=== PATIENT | male | born 1945 | race Caucasian/White ===

== ENCOUNTER 2019-05-29 18:11 | Outpatient (REF) | payer MEDICARE, MEDICAID, SELFPAY ==
[2019-05-29 19:59] LABS: HCT 39.4 % (40.0-50.0); HGB 12.8 g/dL (13.5-17.5); Mean Corp. HGB Concentration 32.5 g/dL (32.0-36.0); Mean Corpuscular Hemoglobin 30.6 pg (27.0-33.0); Mean Corpuscular Volume 94.3 fL (80-95); Mean Platelet Volume 10.4 fL (8.0-11.0); Platelet Count 196 x1000/uL (130-400); RBC 4.18 m/cumm (4.50-6.00); RBC Distribution Width 14.2 % (11.8-14.1); White Blood Cell Count 7.89 k/cumm (4.4-10.8)
[2019-05-29 20:29] LABS: ALT 32 U/L (16-63); AST 23 U/L (15-37); Albumin 3.3 g/dL (3.4-5.0); Alkaline Phosphatase 76 U/L (46-116); Anion Gap 13.3 mmol/L (3-11); BUN 28 mg/dL (7-18); Bilirubin, Total 0.7 mg/dL (0.2-1.0); CO2 24.7 mmol/L (21.0-32.0); CREATININE 1.26 mg/dL (0.70-1.30); Calcium 8.8 mg/dL (8.5-10.1); Chloride 100 mmol/L (98-107); Estimated GFR 55.94 (mL/min/1.73m2); Glucose 93 mg/dL (70-100); Lipase 420 U/L (73-393); Potassium 4.2 mmol/L (3.5-5.1); Sodium 138 mmol/L (136-145); TSH 1.45 uIU/mL (0.36-3.74); Total Protein 6.9 g/dL (6.4-8.2)
== END 2019-05-29 18:31 ==
LOC: NCHCN 18:11
PROVIDERS: PCP Internal Medicine; Visit Provider Internal Medicine
DX: R53.1 Weakness (principal); E86.0 Dehydration
CPT/HCPCS: 80053; 83690; 85027; 84443

== ENCOUNTER 2019-12-18 08:44 | Outpatient (REF) | payer MEDICARE, MEDICAID, SELFPAY ==
[2019-12-19 10:38] LABS: HCT 40.6 % (40.0-50.0); HGB 13.2 g/dL (13.5-17.5); Mean Corp. HGB Concentration 32.5 g/dL (32.0-36.0); Mean Corpuscular Volume 95.3 fL (80-95); Mean Platelet Volume 10.6 fL (8.0-11.0); Platelet Count 212 x1000/uL (130-400); RBC 4.26 m/cumm (4.50-6.00); RBC Distribution Width 14.7 % (11.8-14.1); White Blood Cell Count 6.89 k/cumm (4.4-10.8)
[2019-12-19 10:57] LABS: ALT 18 U/L (16-63); AST 15 U/L (15-37); Albumin 3.5 g/dL (3.4-5.0); Alkaline Phosphatase 105 U/L (46-116); Anion Gap 7.9 mmol/L (3-11); BUN 13 mg/dL (7-18); Bilirubin, Total 0.5 mg/dL (0.2-1.0); CO2 28.1 mmol/L (21.0-32.0); Calcium 9.1 mg/dL (8.5-10.1); Chloride 105 mmol/L (98-107); Glucose 101 mg/dL (74-106); Potassium 4.3 mmol/L (3.5-5.1); Sodium 141 mmol/L (136-145); TSH 0.82 uIU/mL (0.36-3.74)
== END 2019-12-18 09:04 ==
LOC: NCHCN 08:44
PROVIDERS: PCP Internal Medicine; Visit Provider Internal Medicine
DX: I10 Essential (primary) hypertension (principal); I48.0 Paroxysmal atrial fibrillation
CPT/HCPCS: 80053; 85027; 84443

== ENCOUNTER 2020-02-17 14:32 | Outpatient (REF) | payer MEDICARE, MEDICAID, SELFPAY ==
[2020-02-17 19:15] LABS: HGB 12.6 g/dL (13.5-17.5); Mean Corp. HGB Concentration 31.5 g/dL (32.0-36.0); Mean Corpuscular Hemoglobin 29.5 pg (27.0-33.0); Mean Corpuscular Volume 93.7 fL (80-95); Mean Platelet Volume 9.8 fL (8.0-11.0); Platelet Count 266 x1000/uL (130-400); RBC 4.27 m/cumm (4.50-6.00); RBC Distribution Width 15.1 % (11.8-14.1); White Blood Cell Count 7.59 k/cumm (4.4-10.8)
[2020-02-17 19:19] LABS: ALT 18 U/L (16-63); AST 17 U/L (15-37); Albumin 3.6 g/dL (3.4-5.0); Alkaline Phosphatase 116 U/L (46-116); Anion Gap 10.5 mmol/L (3-11); BUN 17 mg/dL (7-18); Bilirubin, Total 0.4 mg/dL (0.2-1.0); CO2 25.5 mmol/L (21.0-32.0); CREATININE 0.91 mg/dL (0.70-1.30); Calcium 8.9 mg/dL (8.5-10.1); Chloride 104 mmol/L (98-107); Glucose 111 mg/dL (74-106); Sodium 140 mmol/L (136-145); Total Protein 7.2 g/dL (6.4-8.2)
[2020-02-17 20:04] LABS: INR 1.3 (0.9-1.1); Prothrombin Time 12.7 sec (9.3-11.0)
== END 2020-02-17 14:52 ==
LOC: NCHCN 14:32
PROVIDERS: PCP Internal Medicine; Visit Provider Internal Medicine
DX: C34.92 Malignant neoplasm of unspecified part of left bronchus or lung (principal); I48.0 Paroxysmal atrial fibrillation; Z79.01 Long term (current) use of anticoagulants
CPT/HCPCS: 80053; 85027; 85610

== ENCOUNTER 2020-05-25 01:40 | Outpatient (RCR) | payer MEDICARE, MEDICAID, SELFPAY ==
[2020-05-25 11:58] LABS: Abs Immature Grans 0.04 10^3/uL (0.0-0.06); Absolute Basophil Count 0.03 10^3/uL (0.0-0.2); Absolute Eosinophil Count 0.05 10^3/uL (0.0-0.7); Absolute Lymphocyte Count 1.14 10^3/uL (1.2-3.4); Absolute Monocyte Count 0.65 10^3/uL (0.1-0.8); Absolute Neutrophil Count 7.59 10^3/uL (1.2-6.7); Basophils % 0.3; Eosinophils % 0.5; HCT 33.1 % (40.0-50.0); HGB 10.4 g/dL (13.5-17.5); Immature Grans % 0.4; MCH 27.7 pg (27.0-33.0); MCHC 31.4 % (32.0-36.0); MCV 88.3 fL (80-95); MPV 8.7 fL (8.0-11.0); Monocytes % 6.8; Nucleated RBC 0 %; Platelet Count 340 10^3/uL (130-400); RBC 3.75 10^6/uL (4.36-5.78); RDW 15.1 % (11.8-14.1); RDW-SD 49.1 fL
[2020-05-25 12:32] LABS: ALT 13 U/L (16-63); AST 15 U/L (15-37); Albumin 2.5 g/dL (3.4-5.0); Alkaline Phosphatase 108 U/L (46-116); Anion Gap 8.2 mmol/L (3-11); BUN 13 mg/dL (7-18); Bilirubin, Total 0.4 mg/dL (0.2-1.0); CO2 26.8 mmol/L (21.0-32.0); CREATININE 0.92 mg/dL (0.70-1.30); Calcium 8.7 mg/dL (8.5-10.1); Chloride 98 mmol/L (98-107); Glucose 140 mg/dL (74-106); Potassium 4.1 mmol/L (3.5-5.1); Sodium 133 mmol/L (136-145); TSH 0.71 uIU/mL (0.36-3.74); Total Protein 7.1 g/dL (6.4-8.2)
== END 2020-06-10 23:59 | disposition home or self-care (01) ==
LOC: INF 01:40
PROVIDERS: PCP Internal Medicine; Visit Provider Internal Medicine Hematology & Oncology
DX: E03.2 Hypothyroidism due to medicaments and other exogenous substances (principal)
CPT/HCPCS: 36415; 80053; 84443; 85025

== ENCOUNTER 2020-05-25 16:04 | Outpatient (REF) | payer MEDICARE, MEDICAID, SELFPAY ==
[2020-05-25 16:23] LABS: Bilirubin Small (Negative); Blood Negative (Negative); Clarity Clear (Clear); Glucose Negative (Negative); Ketones Negative (Negative); Leukocyte Esterase Negative (Negative); Nitrite Negative (Negative); Specific Gravity >= 1.030 (1.005-1.025); pH 5.5 (5-8)
[2020-05-25 16:36] LABS: RBC 0-2 HPF (0-2); WBC 0-2 HPF (0-5)
[2020-05-25 16:37] LABS: Bacteria Negative HPF (Negative); C & S Indicated? No; Casts Negative LPF (Negative); Crystals Few Calcium Oxalate HPF (Negative); Epithelial Cells Few HPF (Negative); Mucus Trace (Negative)
== END 2020-05-25 16:24 ==
LOC: LBN 16:04
PROVIDERS: PCP Internal Medicine; Visit Provider Internal Medicine Medical Oncology
DX: E88.09 Other disorders of plasma-protein metabolism, not elsewhere classified (principal)
CPT/HCPCS: 81003; 81015

== ENCOUNTER 2020-07-06 01:09 | Outpatient (RCR) | payer MEDICARE, MEDICAID, SELFPAY ==
[2020-06-15 12:29] LABS: Abs Immature Grans 0.03 10^3/uL (0.0-0.06); Absolute Basophil Count 0.03 10^3/uL (0.0-0.2); Absolute Eosinophil Count 0.01 10^3/uL (0.0-0.7); Absolute Lymphocyte Count 0.82 10^3/uL (1.2-3.4); Absolute Monocyte Count 0.63 10^3/uL (0.1-0.8); Absolute Neutrophil Count 7.87 10^3/uL (1.2-6.7); Basophils % 0.3; Eosinophils % 0.1; HCT 32.5 % (40.0-50.0); HGB 10.1 g/dL (13.5-17.5); Immature Grans % 0.3; Lymphocytes % 8.7; MCH 26.5 pg (27.0-33.0); MCHC 31.1 % (32.0-36.0); MCV 85.3 fL (80-95); MPV 8.8 fL (8.0-11.0); Monocytes % 6.7; Neutrophils % 83.9; Nucleated RBC 0 %; Platelet Count 345 10^3/uL (130-400); RBC 3.81 10^6/uL (4.36-5.78); RDW 15.5 % (11.8-14.1); RDW-SD 48.6 fL; WBC 9.39 10^3/uL (4.4-10.8)
[2020-06-15 12:52] LABS: ALT 13 U/L (16-63); AST 15 U/L (15-37); Albumin 2.3 g/dL (3.4-5.0); Alkaline Phosphatase 95 U/L (46-116); Anion Gap 8.1 mmol/L (3-11); BUN 11 mg/dL (7-18); Bilirubin, Total 0.4 mg/dL (0.2-1.0); CO2 27.9 mmol/L (21.0-32.0); CREATININE 0.74 mg/dL (0.70-1.30); Calcium 8.6 mg/dL (8.5-10.1); Chloride 98 mmol/L (98-107); Glucose 137 mg/dL (74-106); Potassium 4.1 mmol/L (3.5-5.1); Sodium 134 mmol/L (136-145); TSH 1.26 uIU/mL (0.36-3.74); Total Protein 6.7 g/dL (6.4-8.2)
[2020-07-06] MEDS: Normal Saline Flush 10 ML SYR IVP (12:49)
[2020-07-06 13:06] LABS: Abs Immature Grans 0.07 10^3/uL (0.0-0.06); Absolute Lymphocyte Count 0.44 10^3/uL (1.2-3.4); Basophils % 0.1; HCT 33.8 % (40.0-50.0); HGB 10.4 g/dL (13.5-17.5); Immature Grans % 0.5; Lymphocytes % 2.9; MCH 26.4 pg (27.0-33.0); MCHC 30.8 % (32.0-36.0); MCV 85.8 fL (80-95); MPV 9.2 fL (8.0-11.0); Monocytes % 2.2; Neutrophils % 94.3; Nucleated RBC 0 %; Platelet Count 320 10^3/uL (130-400); RBC 3.94 10^6/uL (4.36-5.78); RDW 15.9 % (11.8-14.1); RDW-SD 50.1 fL; WBC 15.29 10^3/uL (4.4-10.8)
[2020-07-06 13:07] LABS: Absolute Basophil Count 0.02 10^3/uL (0.0-0.2); Absolute Monocyte Count 0.34 10^3/uL (0.1-0.8); Absolute Neutrophil Count 14.42 10^3/uL (1.2-6.7)
[2020-07-06 13:26] LABS: ALT 15 U/L (16-63); AST 14 U/L (15-37); Albumin 2.5 g/dL (3.4-5.0); Alkaline Phosphatase 123 U/L (46-116); Anion Gap 4.7 mmol/L (3-11); BUN 12 mg/dL (7-18); Bilirubin, Total 0.4 mg/dL (0.2-1.0); CO2 29.3 mmol/L (21.0-32.0); CREATININE 0.76 mg/dL (0.70-1.30); Calcium 8.6 mg/dL (8.5-10.1); Chloride 96 mmol/L (98-107); Glucose 166 mg/dL (74-106); Sodium 130 mmol/L (136-145); TSH 0.88 uIU/mL (0.36-3.74); Total Protein 7.1 g/dL (6.4-8.2)
== END 2020-07-11 23:59 | disposition home or self-care (01) ==
LOC: INF 01:09
PROVIDERS: PCP Internal Medicine; Visit Provider Internal Medicine Hematology & Oncology
DX: E03.2 Hypothyroidism due to medicaments and other exogenous substances (principal); C34.90 Malignant neoplasm of unspecified part of unspecified bronchus or lung
CPT/HCPCS: 36415; 80053; 84443; 85025

== ENCOUNTER 2020-08-10 02:10 | Outpatient (RCR) | payer MEDICARE, MEDICAID, SELFPAY ==
[2020-07-27 12:41] LABS: Abs Immature Grans 0.12 10^3/uL (0.0-0.06); Absolute Basophil Count 0.02 10^3/uL (0.0-0.2); Absolute Lymphocyte Count 0.84 10^3/uL (1.2-3.4); Basophils % 0.1; HGB 10.2 g/dL (13.5-17.5); Immature Grans % 0.6; Lymphocytes % 4.5; MCH 25.6 pg (27.0-33.0); MCHC 30.9 % (32.0-36.0); MCV 82.7 fL (80-95); MPV 8.8 fL (8.0-11.0); Monocytes % 4.8; Nucleated RBC 0 %; Platelet Count 398 10^3/uL (130-400); RBC 3.99 10^6/uL (4.36-5.78); RDW 16.3 % (11.8-14.1); RDW-SD 49.1 fL; WBC 18.62 10^3/uL (4.4-10.8)
[2020-07-27 12:47] LABS: Absolute Monocyte Count 0.89 10^3/uL (0.1-0.8); Absolute Neutrophil Count 16.76 10^3/uL (1.2-6.7)
[2020-07-27 12:58] LABS: ALT 12 U/L (16-63); AST 17 U/L (15-37); Albumin 2.3 g/dL (3.4-5.0); Alkaline Phosphatase 125 U/L (46-116); Anion Gap 6.6 mmol/L (3-11); BUN 16 mg/dL (7-18); Bilirubin, Total 0.6 mg/dL (0.2-1.0); CO2 29.4 mmol/L (21.0-32.0); CREATININE 0.83 mg/dL (0.70-1.30); Calcium 8.5 mg/dL (8.5-10.1); Chloride 98 mmol/L (98-107); Glucose 140 mg/dL (74-106); Potassium 3.8 mmol/L (3.5-5.1); Sodium 134 mmol/L (136-145); TSH 1.42 uIU/mL (0.36-3.74); Total Protein 6.9 g/dL (6.4-8.2)
== END 2020-08-10 23:59 | disposition home or self-care (01) ==
LOC: INF 02:10
PROVIDERS: PCP Internal Medicine; Visit Provider Internal Medicine Hematology & Oncology
DX: E03.2 Hypothyroidism due to medicaments and other exogenous substances (principal); C34.90 Malignant neoplasm of unspecified part of unspecified bronchus or lung
CPT/HCPCS: 36415; 80053; 84443; 85025

== ENCOUNTER 2020-08-10 11:29 | Outpatient (REF) | payer MEDICARE, MEDICAID, SELFPAY ==
[2020-08-10 11:49] LABS: Abs Immature Grans 0.18 10^3/uL (0.0-0.06); Absolute Monocyte Count 0.46 10^3/uL (0.1-0.8); Basophils % 0.1; HCT 32.6 % (40.0-50.0); Immature Grans % 0.7; Lymphocytes % 1.3; MCH 26.5 pg (27.0-33.0); MCHC 30.7 % (32.0-36.0); MCV 86.2 fL (80-95); MPV 9.5 fL (8.0-11.0); Monocytes % 1.9; Nucleated RBC 0 %; RBC 3.78 10^6/uL (4.36-5.78); RDW 18.6 % (11.8-14.1); RDW-SD 56.8 fL; WBC 24.31 10^3/uL (4.4-10.8)
[2020-08-10 11:55] LABS: Absolute Basophil Count 0.02 10^3/uL (0.0-0.2); Absolute Lymphocyte Count 0.32 10^3/uL (1.2-3.4); Absolute Neutrophil Count 23.34 10^3/uL (1.2-6.7)
[2020-08-10 11:57] LABS: ALT 17 U/L (16-63); AST 16 U/L (15-37); Albumin 2.5 g/dL (3.4-5.0); Alkaline Phosphatase 118 U/L (46-116); BUN 20 mg/dL (7-18); Bilirubin, Total 0.4 mg/dL (0.2-1.0); CREATININE 0.57 mg/dL (0.70-1.30); Calcium 8.3 mg/dL (8.5-10.1); Chloride 100 mmol/L (98-107); FREE T4 1.06 ng/dL (0.76-1.46); Glucose 136 mg/dL (74-106); Potassium 4.2 mmol/L (3.5-5.1); Sodium 133 mmol/L (136-145); TSH 0.86 uIU/mL (0.36-3.74); Total Protein 6.3 g/dL (6.4-8.2)
[2020-08-10 12:16] LABS: Platelet Count 262 10^3/uL (130-400)
[2020-08-10 12:17] LABS: Anisocytosis 1+; Diff Comment Agrees w/ Instrument; Poikilocytes 1+; Polychromasia Present
== END 2020-08-10 11:49 ==
LOC: LBN 11:29
PROVIDERS: PCP Internal Medicine; Visit Provider Internal Medicine Hematology & Oncology
DX: C34.90 Malignant neoplasm of unspecified part of unspecified bronchus or lung (principal); R94.6 Abnormal results of thyroid function studies
CPT/HCPCS: 80053; 84439; 84443; 85025

== ENCOUNTER 2020-08-18 12:25 | Outpatient (REF) | payer MEDICARE, MEDICAID, SELFPAY ==
[2020-08-20 19:20] LABS: COVID-19 RT-PCR UVMMC Result Negative (Negative)
== END 2020-08-18 12:45 ==
LOC: NCHCN 12:25
PROVIDERS: PCP Internal Medicine; Visit Provider Internal Medicine
DX: Z20.828 Contact with and (suspected) exposure to other viral communicable diseases (principal)
CPT/HCPCS: U0003

== ENCOUNTER 2020-08-31 01:45 | Outpatient (RCR) | payer MEDICARE, MEDICAID, SELFPAY ==
[2020-08-31] MEDS: Normal Saline Flush 10 ML SYR IVP (09:40)
[2020-08-31 10:00] LABS: Abs Immature Grans 0.68 10^3/uL (0.0-0.06); Absolute Monocyte Count 0.91 10^3/uL (0.1-0.8); Absolute Neutrophil Count 25.31 10^3/uL (1.2-6.7); Basophils % 0.2; HCT 29.3 % (40.0-50.0); HGB 9.5 g/dL (13.5-17.5); Immature Grans % 2.5; Lymphocytes % 2.2; MCH 27.5 pg (27.0-33.0); MCHC 32.4 % (32.0-36.0); MCV 84.9 fL (80-95); MPV 8.5 fL (8.0-11.0); Monocytes % 3.3; Nucleated RBC 0 %; Platelet Count 276 10^3/uL (130-400); RBC 3.45 10^6/uL (4.36-5.78); RDW 21.8 % (11.8-14.1); RDW-SD 66.3 fL
[2020-08-31 10:20] LABS: ALT 22 U/L (16-63); AST 13 U/L (15-37); Albumin 2.4 g/dL (3.4-5.0); Alkaline Phosphatase 114 U/L (46-116); Anion Gap 8.3 mmol/L (3-11); BUN 18 mg/dL (7-18); Bilirubin, Total 0.4 mg/dL (0.2-1.0); CO2 26.7 mmol/L (21.0-32.0); CREATININE 0.56 mg/dL (0.70-1.30); Calcium 8.5 mg/dL (8.5-10.1); Chloride 100 mmol/L (98-107); FREE T4 1.11 ng/dL (0.76-1.46); Glucose 142 mg/dL (74-106); Potassium 3.9 mmol/L (3.5-5.1); Sodium 135 mmol/L (136-145); TSH 0.33 uIU/mL (0.36-3.74); Total Protein 6.3 g/dL (6.4-8.2)
[2020-08-31 10:26] LABS: Absolute Basophil Count 0.06 10^3/uL (0.0-0.2); Absolute Lymphocyte Count 0.61 10^3/uL (1.2-3.4); WBC 27.57 10^3/uL (4.4-10.8)
[2020-08-31 10:54] LABS: Anisocytosis 1+; Diff Comment Diff Reviewed; Neutrophils % 91.8
[2020-08-31 10:55] LABS: Hypochromasia 1+; Poikilocytes 1+
== END 2020-09-10 23:59 | disposition home or self-care (01) ==
LOC: INF 01:45
PROVIDERS: PCP Internal Medicine; Visit Provider Internal Medicine Hematology & Oncology
DX: E03.2 Hypothyroidism due to medicaments and other exogenous substances (principal); C34.90 Malignant neoplasm of unspecified part of unspecified bronchus or lung; R94.6 Abnormal results of thyroid function studies
CPT/HCPCS: 36415; 80053; 84439; 84443; 85025